=== PATIENT | female | born 1965 | race Two or more races ===

== ENCOUNTER → 2024-12-26 | Outpatient (CLI) | payer MEDICARE, MEDICAID, SELFPAY ==
--- NOTE | 2024-12-26 13:30 | XR_ITS ---
Examination: Breast ultrasound complete, bilateral Date and time of exam: December 26, 2024 1308 hours INDICATIONS: Bilateral breast tenderness 1 year Technique: Real-time grayscale ultrasonographic imaging bilateral breasts, including all 4 quadrants as well as nipple retroareolar and axillary regions. Findings: No cystic or solid mass involving either breast IMPRESSION: BI-RADS Category 1: Negative study Consider diagnostic mammography follow-up
== END | disposition home or self-care (01) ==
PROVIDERS: PCP Nurse Practitioner; Referring Provider Nurse Practitioner; Visit Provider Nurse Practitioner
DX: Z12.39 Encounter for other screening for malignant neoplasm of breast (principal)
CPT/HCPCS: 76641

== ENCOUNTER → 2025-03-05 | Outpatient (CLI) | payer MEDICARE, MEDICAID, SELFPAY ==
--- NOTE | 2025-03-05 10:30 | XR_ITS ---
Examination: Abdomen sonogram, complete Date and time of exam: March 05, 2025 1001 hours INDICATIONS: Bilateral flank pain beginning 3 months ago. Technique: Multiple real-time grayscale transabdominal sonographic images of the abdomen have been obtained. Findings: Normal gallbladder. Normal common bile duct 0.5 cm Pancreatic head 1.7 cm Aorta not enlarged Liver 16.6 cm fatty infiltration Normal hepatopedal portal venous flow Patent IVC Right kidney 11.7 cm cortex 1.4 cm 19 mm lower pole cyst Left kidney 11.7 cm cortex 2.2 cm Mild renal parenchymal scar formation Spleen 8.5 cm IMPRESSION: Normal gallbladder Fatty liver Mild bilateral renal pedicle scar formation
== END | disposition home or self-care (01) ==
PROVIDERS: PCP Nurse Practitioner; Referring Provider Nurse Practitioner; Visit Provider Nurse Practitioner
DX: K76.0 Fatty (change of) liver, not elsewhere classified (principal); N28.89 Other specified disorders of kidney and ureter; Z87.19 Personal history of other diseases of the digestive system
CPT/HCPCS: 76700